=== PATIENT | female | born 1950 | race Caucasian/White ===

== ENCOUNTER 2018-02-24 13:39 | Inpatient (IN) | payer OTHER, MEDICARE ==
[~2018-02-24] VITALS: Ht 167.6 cm; Wt 87.9 kg
[2018-02-24] MEDS ORDERED: Flovent Diskus50 MCG IH (13:51)
[2018-02-24] MEDS ORDERED: Multivitamin1 EAC1 PO (13:51)
[2018-02-24] MEDS ORDERED: CRINONE1.125 GM VAG (16:06)
[2018-02-24] MEDS ORDERED: Stool Softener100 MG (16:08)
[2018-02-24] MEDS ORDERED: STOOL SOFTENER1 EAC2 (16:09)
[2018-02-25 05:40] LABS: BASOPHILS ABSOLUTE AUTO 0.02 K/mm3 (0.00-0.23); BASOPHILS PERCENT AUTO 0 % (0-2); EOSINOPHILS ABSOLUTE AUTO 0.11 K/mm3 (0.00-0.68); EOSINOPHILS PERCENT AUTO 1 % (0-6); Hematocrit 36.7 % (33.0-51.0); IMMATURE GRAN ABSOLUTE AUTO 0.06 K/mm3 (0.00-0.10); IMMATURE GRAN PERCENT AUTO 1 % (0-1); LYMPHOCYTES ABSOLUTE AUTO 1.22 K/mm3 (0.84-5.20); LYMPHOCYTES PERCENT AUTO 14 % (21-46); MONOCYTES ABSOLUTE AUTO 0.79 K/mm3 (0.16-1.47); MONOCYTES PERCENT AUTO 9 % (4-13); Mean Corpuscular HGB Conc 32.7 g/dL (31.5-36.5); Mean Corpuscular Volume 86 fL (80-100); NEUTROPHILS ABSOLUTE AUTO 6.32 K/mm3 (1.96-9.15); NEUTROPHILS PERCENT AUTO 74 % (41-73); RDW Coefficient Variation 14.5 % (11.7-14.2); RDW Standard Deviation 45.1 fL (35.1-46.3); Red Blood Cell Count 4.28 M/mm3 (3.80-5.20); White Blood Cell Count 8.52 K/mm3 (4.00-11.30)
[2018-02-25 05:52] LABS: Anion Gap 10 mmol/L (6-16); Blood Urea Nitrogen 11 mg/dL (8-24); CO2, Blood 22 mmol/L (21-32); Calcium, Blood 8.5 mg/dL (8.5-10.1); Chloride, Blood 110 mmol/L (98-108); Creatinine, Blood 0.69 mg/dL (0.40-1.00); Glomerular Filtration Rate >60 (60-); Glucose, Blood 106 mg/dL (70-99); Magnesium, Blood 2.3 mg/dL (1.6-2.4); Potassium, Blood 4.3 mmol/L (3.5-5.5); Sodium, Blood 142 mmol/L (136-145)
[2018-02-25 05:53] LABS: Platelet Count 180 K/mm3 (150-400)
[2018-02-26] MEDS ORDERED: CIPR500 PO (10:25)
[2018-02-26] MEDS ORDERED: METR500 PO (10:25)
== END 2018-02-26 12:00 | disposition home or self-care (01) | DRG 392 ==
LOC: ER 13:39 → MEDS 13:54 → ER 14:37 → MEDS 14:37 → ENPENDDIS 02-26 10:00 → MEDS 02-26 12:00
PROVIDERS: Internal Medicine
DX: K57.20 Diverticulitis of large intestine with perforation and abscess without bleeding (principal); E78.5 Hyperlipidemia, unspecified; G47.33 Obstructive sleep apnea (adult) (pediatric); R73.03 Prediabetes; M17.10 Unilateral primary osteoarthritis, unspecified knee
CPT/HCPCS: 36415; 80048; 82565; 83735; 85025; 99285; J0744; J1885; J7030

== ENCOUNTER 2019-02-27 23:44 | Emergency (ER) | payer OTHER ==
[~2019-02-27] VITALS: Ht 167.6 cm; Wt 81.7 kg
[~2019-02-27 23:44] MED LIST: CIPR500 PO; CRINONE1.125 GM VAG; Flovent Diskus50 MCG IH; METR500 PO; Multivitamin1 EAC1 PO; STOOL SOFTENER1 EAC2; Stool Softener100 MG
[2019-02-28 01:04] LABS: BASOPHILS ABSOLUTE AUTO 0.02 K/mm3 (0.00-0.23); BASOPHILS PERCENT AUTO 0 % (0-2); EOSINOPHILS ABSOLUTE AUTO 0.12 K/mm3 (0.00-0.68); EOSINOPHILS PERCENT AUTO 2 % (0-6); Hematocrit 38.6 % (33.0-51.0); Hemoglobin 12.3 g/dL (11.5-16.0); IMMATURE GRAN ABSOLUTE AUTO 0.04 K/mm3 (0.00-0.10); IMMATURE GRAN PERCENT AUTO 1 % (0-1); LYMPHOCYTES ABSOLUTE AUTO 1.44 K/mm3 (0.84-5.20); LYMPHOCYTES PERCENT AUTO 21 % (21-46); MONOCYTES ABSOLUTE AUTO 0.68 K/mm3 (0.16-1.47); MONOCYTES PERCENT AUTO 10 % (4-13); Mean Corpuscular HGB Conc 31.9 g/dL (31.5-36.5); Mean Corpuscular Volume 91 fL (80-100); Mean Platelet Volume 9.9 fL (9.1-12.4); NEUTROPHILS PERCENT AUTO 67 % (41-73); Platelet Count 257 K/mm3 (150-400); RDW Coefficient Variation 13.9 % (11.7-14.2); Red Blood Cell Count 4.24 M/mm3 (3.80-5.20)
[2019-02-28 01:27] LABS: International Normalized Ratio 0.95; Prothrombin Time Results 10.1 Sec (9.7-11.5)
[2019-02-28 01:29] LABS: Alanine Aminotransfer (ALT/SGP 25 U/L (12-78); Albumin, Blood 3.5 g/dL (3.4-5.0); Albumin/Globulin Ratio 1.1 (0.8-1.8); Alk Phos 74 U/L (50-136); Anion Gap 6 mmol/L (6-16); Aspartate Aminotrans (AST/SGOT 22 U/L (12-37); Bilirubin, Total 0.3 mg/dL (0.1-1.0); Blood Urea Nitrogen 22 mg/dL (8-24); Bun/Creatinine Ratio 27.6 (12.0-20.0); CO2, Blood 27 mmol/L (21-32); Calcium, Blood 8.1 mg/dL (8.5-10.1); Chloride, Blood 106 mmol/L (98-108); Ethanol (Alcohol), Blood, Med <3 mg/dL; Globulin, Blood 3.1 g/dL (2.2-4.0); Glomerular Filtration Rate >60 (60-); Glucose, Blood 94 mg/dL (70-99); Potassium, Blood 4.2 mmol/L (3.5-5.5); Sodium, Blood 139 mmol/L (136-145); Total Protein, Blood 6.6 g/dL (6.4-8.2)
[2019-02-28] MEDS ORDERED: Stool Softener100 MG PO (02:48)
== END 2019-02-28 08:10 | disposition home or self-care (01) ==
LOC: ER 23:44
PROVIDERS: Emergency Medicine
DX: S06.9X9A Unspecified intracranial injury with loss of consciousness of unspecified duration, initial encounter (principal); S00.01XA Abrasion of scalp, initial encounter; D32.0 Benign neoplasm of cerebral meninges; E78.5 Hyperlipidemia, unspecified; G47.33 Obstructive sleep apnea (adult) (pediatric); Z88.8 Allergy status to other drugs, medicaments and biological substances; Z88.5 Allergy status to narcotic agent; Z79.899 Other long term (current) drug therapy; V89.2XXA Person injured in unspecified motor-vehicle accident, traffic, initial encounter
CPT/HCPCS: 36415; 70450; 71260; 72125; 74177; 80053; 85025; 85610; 85730; 86850; 86900; 86901; 90471; 90714; 96361; 96374-59; 99284-25; G0480; J3010; J7030; Q9967

== ENCOUNTER 2024-12-24 11:12 | Day surgery (SDC) | payer OTHER ==
[~2024-12-24] VITALS: Ht 167.6 cm; Wt 85.5 kg
[~2024-12-24 11:12] MED LIST changes: +Albuterol 2.5 MG/3 ML VIAL INH PRN; +Balanced Salt Epinephrine Irrigation Solution 500 mL IR SCH; +Lidocaine HCl 1% 5 ML SYR INJ ONE; +Lidocaine HCl/Pf 1% 5 ML VIAL XX SCH; +Moxifloxacin HCL 0.5 MG/0.1 ML 0.4MLSYR LEFTEYE SCH; +Ondansetron HCl 2 MG / ML 2ML Vial IV PRN; +PHENYLEPHRINE\\TROPICAMIDE\\TETRACAINE OPHTHALMIC DILATING SOLN LEFTEYE PRN; +Povidone-Iodine 450 DROP/30 ML Solution LEFTEYE SCH; +Povidone-Iodine 450 DROP/30 ML Solution ONE; +Stool Softener100 MG PO; +Tetracaine HCl/Pf 0.5% Opth Soln 4 ml ONE; +Triamcinolone Inj Susp 40 MG / ML 1ML Vial INJ SCH; +Triamcinolone Inj Susp 40 MG / ML 1ML Vial ONE
[2024-12-24] MEDS ORDERED: GINKGO60 MG PO (12:01)
[2024-12-24] MEDS ORDERED: NS 500 ML IV ONE (12:09)
[2024-12-24] MEDS ORDERED: FentaNYL Citrate 50 MCG/ML 2 ML Injection ONE (12:15)
[2024-12-24] MEDS ORDERED: Midazolam HCl 1MG / ML 2ML Vial ONE (12:16)
[2024-12-24 13:08] VITALS: BP 126/77
== END 2024-12-24 13:40 | disposition home or self-care (01) ==
LOC: ORSCSDS 11:12
PROVIDERS: Ophthalmology
PROC: 08RK3JZ Replacement of Left Lens with Synthetic Substitute, Percutaneous Approach (ICD-10-PCS; principal; 2024-12-24 12:30)
DX: H25.812 Combined forms of age-related cataract, left eye (principal); H52.202 Unspecified astigmatism, left eye; G47.33 Obstructive sleep apnea (adult) (pediatric); E66.9 Obesity, unspecified; Z68.30 Body mass index [BMI] 30.0-30.9, adult; R73.03 Prediabetes; Z79.899 Other long term (current) drug therapy
CPT/HCPCS: J2250; J3010; J3301; V2632

== ENCOUNTER 2024-12-31 10:34 | Day surgery (SDC) | payer OTHER ==
[~2024-12-31] VITALS: Ht 167.6 cm; Wt 85.4 kg
[~2024-12-31 10:34] MED LIST changes: -Albuterol 2.5 MG/3 ML VIAL INH PRN; +GINKGO60 MG PO; -Lidocaine HCl 1% 5 ML SYR INJ ONE; -Moxifloxacin HCL 0.5 MG/0.1 ML 0.4MLSYR LEFTEYE SCH; +NS 500 ML IV ONE; -Ondansetron HCl 2 MG / ML 2ML Vial IV PRN; -PHENYLEPHRINE\\TROPICAMIDE\\TETRACAINE OPHTHALMIC DILATING SOLN LEFTEYE PRN; +PHENYLEPHRINE\\TROPICAMIDE\\TETRACAINE OPHTHALMIC DILATING SOLN RIGHTEYE PRN; -Povidone-Iodine 450 DROP/30 ML Solution LEFTEYE SCH; +Povidone-Iodine 450 DROP/30 ML Solution RIGHTEYE SCH
[2024-12-31] MEDS ORDERED: [UNRECOGNIZED DRUG - OTHER] PO (11:22)
[2024-12-31] MEDS ORDERED: CINNAMON EXTRA500 MG PO (11:23)
[2024-12-31] MEDS ORDERED: LACT PO (11:23)
[2024-12-31] MEDS ORDERED: CALCIUM-MAGNES1 EA11 PO (11:24)
[2024-12-31] MEDS ORDERED: DHEA25 MG PO (11:24)
[2024-12-31] MEDS ORDERED: [UNRECOGNIZED DRUG - OTHER] TP (11:24)
[2024-12-31] MEDS ORDERED: Lactated Ringer's 1,000 ML IV ONE (11:32)
--- NOTE | 2024-12-31 11:37 | NUR ---
12/31/24 1137 April Marr T: 1124, P: 1126 [facility].
[2024-12-31] MEDS ORDERED: FentaNYL Citrate 50 MCG/ML 2 ML Injection ONE (11:55)
[2024-12-31] MEDS ORDERED: Midazolam HCl 1MG / ML 2ML Vial ONE (11:56)
[2024-12-31] MEDS ORDERED: Moxifloxacin HCL 0.5 MG/0.1 ML 0.4MLSYR RIGHTEYE ONE (12:17)
--- NOTE | 2024-12-31 12:17 | NUR ---
12/31/24 1217 Chanelle Barrow REPORT RECEIVED. HEARING AID IN LEFT EAR UPON ARRIVAL TO PACU.
[2024-12-31 12:19] VITALS: BP 129/72
[2024-12-31] MEDS ORDERED: Lactated Ringer's 500 ML IV ONE (12:20)
== END 2024-12-31 12:43 | disposition home or self-care (01) ==
LOC: ORSCSDS 10:34
PROVIDERS: Ophthalmology
PROC: 08RJ3JZ Replacement of Right Lens with Synthetic Substitute, Percutaneous Approach (ICD-10-PCS; principal; 2024-12-31 12:00)
DX: H25.811 Combined forms of age-related cataract, right eye (principal); Z96.1 Presence of intraocular lens; H18.513 Endothelial corneal dystrophy, bilateral; Z79.899 Other long term (current) drug therapy
CPT/HCPCS: 82947; J2250; J3010; J3301; J7040; J7120; V2632

== ENCOUNTER 2025-06-19 05:15 | Observation (INO) | payer OTHER ==
[~2025-06-19] VITALS: Ht 167.6 cm; Wt 84.6 kg
[~2025-06-19 05:15] MED LIST changes: +ACET500 PO; +AMOCLA875 PO; -Balanced Salt Epinephrine Irrigation Solution 500 mL IR SCH; +CALCIUM-MAGNES1 EA11 PO; +CINNAMON EXTRA500 MG PO; +DHEA25 MG PO; +LACT PO; -Lidocaine HCl/Pf 1% 5 ML VIAL XX SCH; +MIRALAX1714 PO; -NS 500 ML IV ONE; +ONDA4 PO; -PHENYLEPHRINE\\TROPICAMIDE\\TETRACAINE OPHTHALMIC DILATING SOLN RIGHTEYE PRN; -Povidone-Iodine 450 DROP/30 ML Solution ONE; -Povidone-Iodine 450 DROP/30 ML Solution RIGHTEYE SCH; -Tetracaine HCl/Pf 0.5% Opth Soln 4 ml ONE; -Triamcinolone Inj Susp 40 MG / ML 1ML Vial INJ SCH; -Triamcinolone Inj Susp 40 MG / ML 1ML Vial ONE; +[UNRECOGNIZED DRUG - OTHER] PO; +[UNRECOGNIZED DRUG - OTHER] TP
[2025-06-19 06:04] LABS: BASOPHILS ABSOLUTE AUTO 0.04 K/mm3 (0.00-0.23); BASOPHILS PERCENT AUTO 1 % (0-2); EOSINOPHILS ABSOLUTE AUTO 0.03 K/mm3 (0.00-0.68); EOSINOPHILS PERCENT AUTO 0 % (0-6); Hematocrit 38.7 % (33.0-51.0); Hemoglobin 12.8 g/dL (11.5-16.0); IMMATURE GRAN ABSOLUTE AUTO 0.03 K/mm3 (0.00-0.10); IMMATURE GRAN PERCENT AUTO 0 % (0-1); LYMPHOCYTES ABSOLUTE AUTO 1.01 K/mm3 (0.84-5.20); LYMPHOCYTES PERCENT AUTO 12 % (21-46); MONOCYTES ABSOLUTE AUTO 0.72 K/mm3 (0.16-1.47); MONOCYTES PERCENT AUTO 8 % (4-13); Mean Corpuscular HGB Conc 33.1 g/dL (31.5-36.5); Mean Corpuscular Volume 86 fL (80-100); NEUTROPHILS ABSOLUTE AUTO 6.85 K/mm3 (1.96-9.15); NEUTROPHILS PERCENT AUTO 79 % (41-73); NRBC ABSOLUTE 0.00 K/mm3 (0.00-0.02); NRBC Auto 0.0 /100 WBC (0.0-0.2); Platelet Count 290 K/mm3 (150-400); RDW Coefficient Variation 14.8 % (11.7-14.2); RDW Standard Deviation 47.3 fL (35.1-46.3)
[2025-06-19] MEDS ORDERED: Ketorolac Tromethamine 30mg Vial IV ONE (06:05)
[2025-06-19] MEDS ORDERED: NS 500 ML IV SCH (06:05)
[2025-06-19] MEDS ORDERED: Magnesium Sulf 2 GM/Water 50ML 50 ML IV ONE (06:25)
[2025-06-19 06:33] LABS: Alanine Aminotransfer (ALT/SGP 23.0 U/L (12-78); Albumin, Blood 3.5 g/dL (3.4-5.0); Albumin/Globulin Ratio 1.1 (0.8-1.8); Anion Gap 9.0 mmol/L (3-11); Aspartate Aminotrans (AST/SGOT 22.0 U/L (12-37); Bilirubin, Total 0.4 mg/dL (0.1-1.0); Blood Urea Nitrogen 16.0 mg/dL (8-24); CO2, Blood 21.0 mmol/L (21-32); Calcium, Blood 9.3 mg/dL (8.5-10.1); Chloride, Blood 112.0 mmol/L (98-108); Creatinine, Blood 0.62 mg/dL (0.40-1.00); Globulin, Blood 3.3 g/dL (2.2-4.0); Glucose, Blood 126.0 mg/dL (70-99); Magnesium, Blood 2.1 mg/dL (1.6-2.4); Potassium, Blood 4.3 mmol/L (3.5-5.5); Sodium, Blood 138.0 mmol/L (136-145); Total Protein, Blood 6.8 g/dL (6.4-8.2)
[2025-06-19 06:45] LABS: Influenza A, PCR NEGATIVE (NEGATIVE); Influenza B, PCR NEGATIVE (NEGATIVE); Resp Syncytial Virus, PCR NEGATIVE (NEGATIVE); SARS-Cov-2 (COVID-19) PCR, MMC NEGATIVE (NEGATIVE)
[2025-06-19] MEDS ORDERED: Metoprolol Tartrate 1 MG/ML 5 ML VIAL IV ONE (07:45)
[2025-06-19] MEDS ORDERED: NS 1,000 ML IV SCH (10:35)
[2025-06-19] MEDS ORDERED: Prochlorperazine Edisylate 10 mg Vial IV PRN (10:35)
[2025-06-19] MEDS ORDERED: FLU VACC TS2025(65UP)/MF59C/PF 45 MCG/0.5 ML SYRINGE IM SCH (10:40)
[2025-06-19 11:47] LABS: Anti-Xa UFH, PHA Monitoring <0.10 IU/mL; Prothrombin Time Results 10.9 Sec (9.7-11.5)
[2025-06-19] MEDS ORDERED: Heparin Sodium 5000 Units/ML 1ML MDV IV ONE (12:05)
[2025-06-19] MEDS ORDERED: Heparin Sodium,Porcine/0.5 NS 500 ML IV SCH (12:10)
[2025-06-19 12:57] VITALS: BP 145/83
--- NOTE | 2025-06-19 13:18 | NUR ---
ARRIVAL TO PCU PT ARRIVED TO PCU VIA GURNEY AND ON RA. PT ABLE TO TRANSFER FROM GURNEY TO STAND ON SCALE FOR WEIGHT AND TRANSFER TO PCU BED WITH MINIMAL ASSISTANCE, THIS RN MANAGED IV LINES. PT WITH HEP GTT RUNNING PER ORDER AT TIME OF ARRIVAL, RATE VERIFIED WITH [place] RN AT BEDSIDE. PT A/OX4. PT STATED TAHT HER WAS BRINGING IN HER MED LIST, PRIMARY RN NOTIFIED.
--- NOTE | 2025-06-19 13:25 | NUR ---
ASSUMPTION NOTE: THIS RN TO ASSUME CARE OF PATIENT. PATIENT OREINTED TO ROOM AND FAMILY WAS MADE AWARE. PATIENT IS ALERT AND ORIETNED X4 & DENIED ANY CHEST PAIN/PRESSURE. PATIENT ORIENTED TO CALL LIGHT AND AWARE TO CALL PRIOR TO GETTING UP OR NEEDING ANYTHING. PATIENT EATING,VITAL SIGNS STABLE AND ADMISSION IS COMPLETED. PATIENT HAS CALL LIGHT WITHIN REACH, BED IN LOWEST LOCKED POSITION & STATING NOTHING ELSE IS NEEDED AT THIS TIME.
--- NOTE | 2025-06-19 13:52 | NUR ---
MD CALLED: THIS RN CALLED MD REGARDING CLAIRIFCATION FOR ORDERS AND MD GAVE VERBAL ORDER TO DISCONTINUE HEPARIN AND FLUIDS. HE WILL BRIDGE HER TO ORAL BEFORE DISCHARGE. PHARMACY WAS CALLED.
[2025-06-19 15:26] VITALS: BP 106/83
[2025-06-19] MEDS ORDERED: ZINC15 PO (15:29)
[2025-06-19] MEDS ORDERED: MERIBIN5 MG PO (15:30)
[2025-06-19] MEDS ORDERED: [UNRECOGNIZED DRUG - OTHER] PO (15:47)
--- NOTE | 2025-06-19 17:13 | NUR ---
SHIFT SUMMARY: PATIENT IS ALERT AND ORIENTED X4 & COOPERATIVE WITH HER CARE, IS ABLE TO MAKE NEEDS KNOWN & USES CALL LIGHT APPROPRIATELY. SATTING >92% ON ROOM AIR. ON TELE JUMPING BETWEEN SINUS RHYTHM AND SINUS ARRYTHMIA RATE IN 70 S. PATIENT DENIED ANY CHEST PAIN AND HEPARIN DRIP WAS STOPPED UPON ARRIVAL. FLUIDS WERE DISCONTINUED WELL. WAS ABLE TO BRING IN HOME MEDICATIONS AND MED REC HAS BEEN COMPLETED. PATIENT IS STAND BY ASSIST TO THE BATHROOM. DENIES FEELING DIZZY OR LIGHTHEADED WHEN AMBULATING. PATIENT ABLE TO GET SOME REST WHILE HERE. PLAN WILL BE TO TRANSITION TO ORAL ANTICOAGULATIONS AND POSSIBLE DISCHARGE TOMORROW OR THE NEXT DAY. PATIENT CURRENTLY CHATTING WITH ,CALL LIGHT WITHIN REACH, BED IN LOWEST LOCKED POSITION & STATING NOTHING ELSE IS NEEDED AT THIS TIME.
[2025-06-19 20:00] VITALS: BP 124/71
[2025-06-19] MEDS ORDERED: Lactobacil 2-S.Thermo-Bifido 1 1 Cap PO SCH (21:00)
[2025-06-20 00:27] VITALS: BP 134/77
[2025-06-20 03:59] LABS: BASOPHILS ABSOLUTE AUTO 0.01 K/mm3 (0.00-0.23); BASOPHILS PERCENT AUTO 0 % (0-2); EOSINOPHILS ABSOLUTE AUTO 0.09 K/mm3 (0.00-0.68); EOSINOPHILS PERCENT AUTO 2 % (0-6); Hematocrit 36.9 % (33.0-51.0); Hemoglobin 12.2 g/dL (11.5-16.0); IMMATURE GRAN ABSOLUTE AUTO 0.01 K/mm3 (0.00-0.10); IMMATURE GRAN PERCENT AUTO 0 % (0-1); LYMPHOCYTES ABSOLUTE AUTO 0.98 K/mm3 (0.84-5.20); LYMPHOCYTES PERCENT AUTO 20 % (21-46); MONOCYTES ABSOLUTE AUTO 0.50 K/mm3 (0.16-1.47); MONOCYTES PERCENT AUTO 10 % (4-13); Mean Corpuscular HGB Conc 33.1 g/dL (31.5-36.5); Mean Corpuscular Volume 86 fL (80-100); NEUTROPHILS ABSOLUTE AUTO 3.35 K/mm3 (1.96-9.15); NEUTROPHILS PERCENT AUTO 68 % (41-73); NRBC ABSOLUTE 0.00 K/mm3 (0.00-0.02); NRBC Auto 0.0 /100 WBC (0.0-0.2); Platelet Count 255 K/mm3 (150-400); RDW Coefficient Variation 15.0 % (11.7-14.2); RDW Standard Deviation 47.5 fL (35.1-46.3)
[2025-06-20 04:17] LABS: Anion Gap 8.0 mmol/L (3-11); Blood Urea Nitrogen 15.0 mg/dL (8-24); CO2, Blood 23.0 mmol/L (21-32); Calcium, Blood 8.6 mg/dL (8.5-10.1); Chloride, Blood 112.0 mmol/L (98-108); Creatinine, Blood 0.63 mg/dL (0.40-1.00); Glucose, Blood 113.0 mg/dL (70-99); Potassium, Blood 4.3 mmol/L (3.5-5.5); Sodium, Blood 139.0 mmol/L (136-145)
[2025-06-20 04:33] VITALS: BP 117/80
[2025-06-20 08:06] VITALS: BP 117/73
[2025-06-20 12:12] VITALS: BP 112/69
[2025-06-20] MEDS ORDERED: ELIQUIS5 M2 PO (15:16)
[2025-06-20] MEDS ORDERED: METO25ER PO (15:17)
[2025-06-20] MEDS ORDERED: Flecainide Acet50 MG PO (15:17)
--- NOTE | 2025-06-20 18:10 | NUR ---
DISCHARGE PT DISCHARGED AFTER REVIEWING DISCHARGE PAPERWORK/EDUCATION WITH THIS RN. ABLE TO TEACHBACK AND MEDICATIONS SENT TO [facility] PER PT REQUEST. PLAN FOR ZIOPATCH PLACEMENT OUTPATIENT PER DR. WALSH AND DR. CORRIGAN. NO S/S OF DISTRESS, NSR ON MONITOR. STEADY GAIT AND A&oX4. SHE LEFT WITH ALL BELONGINGS VIA WHEELCHAIR WITH HER VIA PRIVATE CAR @ 1600.
== END 2025-06-20 16:49 | disposition home or self-care (01) ==
LOC: ER 05:15 → PCU 10:31
PROVIDERS: Student in an Organized Health Care Education/Training Program; ADMIT Internal Medicine
DX: I48.0 Paroxysmal atrial fibrillation (principal); I08.1 Rheumatic disorders of both mitral and tricuspid valves; I37.1 Nonrheumatic pulmonary valve insufficiency; G47.33 Obstructive sleep apnea (adult) (pediatric); E78.5 Hyperlipidemia, unspecified; M19.90 Unspecified osteoarthritis, unspecified site; R73.03 Prediabetes; Z79.899 Other long term (current) drug therapy; Z87.19 Personal history of other diseases of the digestive system; Z88.8 Allergy status to other drugs, medicaments and biological substances; Z88.1 Allergy status to other antibiotic agents; Z88.5 Allergy status to narcotic agent
CPT/HCPCS: 36415; 71045; 71260; 80048; 80053; 83735; 84484; 85025; 85520; 85610; 85730; 87637; 93005; 93010; 93306; 94660; 96365; 96366; 96375; 99285-25; A9270; J1644; J1885; J3475; J7030; Q9967